=== PATIENT | female | born 1970 | race Caucasian/White ===

== ENCOUNTER 2017-11-23 22:48 | Emergency (ER) | payer BC, SELFPAY ==
[2017-11-23] MEDS ORDERED: Ketorolac Tromethamine 30 MG/ML VIAL ONE (23:09)
[2017-11-23 23:26] LABS: Hemoglobin 13.9 g/dL (12.0-16.0); Mean Corpuscular HGB CONC 36.9 g/dL (32.0-36.0); Mean Corpuscular Hemoglobin 31.4 pg (27.0-31.0); Mean Corpuscular Volume 85.1 fL (78.0-98.0); Platelet Count 250 thou/uL (130-400); RBC Distribution Width 12.1 % (11.5-14.5); Red Blood Cell (RBC) Count 4.41 mill/uL (4.20-5.40); White Blood Cell (WBC) Count 10.2 thou/uL (4.8-10.8)
[2017-11-23 23:31] LABS: ALT (SGPT) 106 U/L (8-55); AST (SGOT) 99 U/L (5-34); Albumin 3.9 g/dL (3.5-5.0); Alkaline Phosphatase 78 U/L (40-150); Anion Gap 14 mmol/L (10-20); BUN (Urea Nitrogen) 12 mg/dL (7.0-18.7); Bilirubin, Total 0.5 mg/dL (0.2-1.2); Calc. Creatinine Clearance 0 mL/min (70-130); Calcium 9.7 mg/dL (7.8-10.44); Carbon Dioxide 23 mmol/L (22-29); Chloride 106 mmol/L (98-107); Estimated GFR-MDRD 79; Glucose 133 mg/dL (70-105); Protein, Total 7.9 g/dL (6.0-8.3); Sodium 139 mmol/L (136-145)
[2017-11-23 23:34] LABS: CKMB 0.4 ng/mL (0-6.6); Troponin I Less than 0.010 ng/mL (< 0.028)
[2017-11-23 23:37] LABS: #Basophils 0.1 thou/uL (0.0-0.2); #Eosinphils 0.3 thou/uL (0.0-0.7); #Lymphocytes 2.9 thou/uL (1.20-3.40); #Monocytes 0.7 thou/uL (0.11-0.59); #Neutrophils 6.1 thou/uL (1.40-6.50); %Basophils 1.1 % (0.0-1.0); %Eosinophils 3.1 % (0.0-10.0); %Lymphocytes 29.5 % (21.0-51.0); %Monocytes 6.7 % (0.0-10.0); %Neutrophils 59.6 % (42.0-75.0); PLT Morphology Comment Appears Adequate; RBC Morphology Normal
--- NOTE | 2017-11-24 08:12 | RAD ---
PORTABLE CHEST: Date: 11/23/17 Comparison made with a 01/12/15 study. FINDINGS: The heart size is normal. There is no vascular congestion or edema. The lungs are clear. IMPRESSION: No acute thoracic findings. POS: HOME
== END 2017-11-23 23:45 | disposition home or self-care (01) ==
LOC: BURERS 22:48
DX: R07.89 Other chest pain (principal); R79.89 Other specified abnormal findings of blood chemistry; F41.9 Anxiety disorder, unspecified; F32.9 Major depressive disorder, single episode, unspecified; F17.220 Nicotine dependence, chewing tobacco, uncomplicated
CPT/HCPCS: 71045; 80053; 82553; 84484; 85025; 93005; 94760; 96374; J1885

== ENCOUNTER 2019-03-04 22:34 | Emergency (ER) | payer BC, SELFPAY ==
[2019-03-04] MEDS ORDERED: Aspirin Chewable 81 MG TAB ONE (22:57)
[2019-03-04 23:21] LABS: #Eosinphils 0.2 thou/uL (0.0-0.7); #Lymphocytes 2.5 thou/uL (1.20-3.40); #Monocytes 0.5 thou/uL (0.11-0.59); #Neutrophils 5.7 thou/uL (1.40-6.50); %Basophils 0.5 % (0.0-1.0); %Eosinophils 2.7 % (0.0-10.0); %Lymphocytes 28.1 % (21.0-51.0); %Monocytes 5.9 % (0.0-10.0); %Neutrophils 62.8 % (42.0-75.0); Hemoglobin 13.8 g/dL (12.0-16.0); Mean Corpuscular HGB CONC 33.5 g/dL (32.0-36.0); Mean Corpuscular Hemoglobin 32.5 pg (27.0-31.0); Mean Corpuscular Volume 97.1 fL (78.0-98.0); Mean Platelet Volume 6.3 fL (7.4-10.4); Platelet Count 225 thou/uL (130-400); RBC Distribution Width 12.7 % (11.5-14.5); Red Blood Cell (RBC) Count 4.25 mill/uL (4.20-5.40)
[2019-03-04 23:39] LABS: ALT (SGPT) 93 U/L (8-55); AST (SGOT) 85 U/L (5-34); Albumin 3.7 g/dL (3.5-5.0); Alkaline Phosphatase 93 U/L (40-110); Anion Gap 14 mmol/L (10-20); BUN (Urea Nitrogen) 8 mg/dL (7.0-18.7); Bilirubin, Total 0.3 mg/dL (0.2-1.2); CK (CPK) 97 U/L (29-168); Calc. Creatinine Clearance 0 mL/min (70-130); Calcium 8.5 mg/dL (7.8-10.44); Carbon Dioxide 24 mmol/L (22-29); Chloride 105 mmol/L (98-107); Estimated GFR-MDRD 84; Globulin 4.1 g/dL (2.4-3.5); Glucose 123 mg/dL (70-105); Lipase 31 U/L (8-78); Potassium 3.7 mmol/L (3.5-5.1); Protein, Total 7.8 g/dL (6.0-8.3); Sodium 139 mmol/L (136-145)
[2019-03-04] MEDS ORDERED: Nitroglycerin 0.4 MG TAB 1 EACH ONE (23:55)
[2019-03-05] MEDS ORDERED: Metoprolol Tartrate 5 MG/5 ML VIAL ONE (00:21)
--- NOTE | 2019-03-05 08:06 | RAD ---
PORTABLE CHEST: Date: 03/04/19 An AP portable film at 2301 hours is compared with an 11/23/17 study. The heart is normal in size for AP projection and body habitus. There is no vascular congestion, asya a, or pleural effusion. The lungs are clear. IMPRESSION: No acute findings. POS: HOME
== END 2019-03-05 00:55 | disposition short-term general hospital (02) ==
LOC: BURERS 22:34
DX: I10 Essential (primary) hypertension (principal); R07.9 Chest pain, unspecified; F41.9 Anxiety disorder, unspecified; F32.9 Major depressive disorder, single episode, unspecified; F17.210 Nicotine dependence, cigarettes, uncomplicated
CPT/HCPCS: 36415; 71045; 80053; 82550; 83690; 84484; 85025; 93005; 96374

== ENCOUNTER 2019-05-21 14:59 | Emergency (ER) | payer BC | END 2019-05-21 15:40 | disposition home or self-care (01) | LOC: BURERS 14:59 | DX: J01.90 Acute sinusitis, unspecified (principal); B96.89 Other specified bacterial agents as the cause of diseases classified elsewhere; F41.9 Anxiety disorder, unspecified; F32.9 Major depressive disorder, single episode, unspecified; F17.210 Nicotine dependence, cigarettes, uncomplicated | CPT/HCPCS: 99282 ==

== ENCOUNTER 2020-04-05 23:52 | Emergency (ER) | payer BC ==
[2020-04-06] MEDS ORDERED: Bupivacaine 0.5% 10 ML VIAL ONE (00:57)
[2020-04-06] MEDS ORDERED: Penicillin V Potassium 250 MG TAB ONE (01:16)
== END 2020-04-06 01:25 | disposition home or self-care (01) ==
LOC: BURERS 23:52
DX: K08.89 Other specified disorders of teeth and supporting structures (principal); I10 Essential (primary) hypertension; F17.210 Nicotine dependence, cigarettes, uncomplicated
CPT/HCPCS: 99282; J3490

== ENCOUNTER 2021-05-01 11:06 | Emergency (ER) | payer BC | END 2021-05-01 11:29 | disposition home or self-care (01) | LOC: BURERS 11:06 | DX: J06.9 Acute upper respiratory infection, unspecified (principal) | CPT/HCPCS: 99283 ==